=== PATIENT | female | born 1955 | race Caucasian/White ===

== ENCOUNTER 2019-08-12 14:03 | Emergency (ER) | payer OTHER ==
[~2019-08-12] VITALS: Ht 162.6 cm; Wt 68.0 kg
--- OUTSIDE RECORDS SUMMARY | ~2019-08-12 | XMS | Clinical Summary ---
Demographics + + + | Address | [address] [place] | | | [place] [address] | + + + | Home Phone | | + + + | Preferred Language | Unknown | + + + | Marital Status | | + + + | Shinto Affiliation | Unknown | + + + | Race | Unknown | + + + | Ethnic Group | Unknown | + + + Author + + + | Author | [facility] | | | and Jigneshana | + + + | Organization | [facility] | | | and Jigneshana | + + + | Address | Unknown | + + + | Phone | Unavailable | + + + Support + + +---------+ + | Name | Relationship | Address | Phone | + + +---------+ + | Hipolito Isaacs | ECON | Unknown | | + + +---------+ + | Daphne Galindo | ECON | Unknown | | + + +---------+ + Care Team Providers + +------+ + | Care Gas Treater Name | Role | Phone | + +------+ + | Pcp, Prov Inactive | PCP | | + +------+ + Allergies + + + +--------+ + | Active Allergy | Reactions | Severity | Noted | Comments | | | | | Date | | + + + +--------+ + | Bupropion Hcl | | | | | + + + +--------+ + | Penicillins | | | | | + + + +--------+ + Medications + + + +---------+------+------+-------+ | Medication | Sig | Dispensed | Refills | Star | End | Statu | | | | | | t | Date | s | | | | | | Date | | | + + + +---------+------+------+-------+ | citalopram | Take 40 mg by mouth | | 0 | 11/0 | | Activ | | (CELEXA) 40 mg | Daily. | | | 8/20 | | e | | tablet | | | | 11 | | | + + + +---------+------+------+-------+ | mometasone | 1 puff daily for 14 | | 0 | 11/0 | | Activ | | (ASMANEX 14 METERED | days. rinse mouth | | | 8/20 | | e | | DOSES) 220 mcg/puff | and spit after each | | | 11 | | | | inhaler | use | | | | | | + + + +---------+------+------+-------+ | omeprazole | 1 by mouth every | | 0 | 10/0 | | Activ | | (PRILOSEC) 20 mg | a.m. 30 minutes | | | 7/20 | | e | | TBEC | prior to breakfast. | | | 11 | | | + + + +---------+------+------+-------+ | doxycycline | 1 by mouth two times | | 0 | 11/0 | | Activ | | (VIBRAMYCIN) 100 mg | daily for 10 days | | | 8/20 | | e | | tablet | | | | 11 | | | + + + +---------+------+------+-------+ | albuterol | 2 puffs every 4 | | 0 | 11/0 | | Activ | | (PROVENTIL HFA) 90 | hours as needed | | | 8/20 | | e | | mcg/puff inhaler | | | | 11 | | | + + + +---------+------+------+-------+ | lovastatin | Take 40 mg by mouth | | 0 | 01/1 | | Activ | | (MEVACOR) 40 MG | nightly. | | | 7/20 | | e | | tablet | | | | 12 | | | + + + +---------+------+------+-------+ | ascorbic acid | | | 0 | 09/1 | | Activ | | (VITAMIN C) 500 mg | | | | /20 | | e | | tablet | | | | 12 | | | + + + +---------+------+------+-------+ | multivitamin | | | 0 | 09/1 | | Activ | | (THERAGRAN) per | | | | 4/20 | | e | | tablet | | | | 12 | | | + + + +---------+------+------+-------+ Active Problems + + + | Problem | Noted Date | + + + | EPISTAXIS | 11/12/2011 | + + + | MAMMOGRAM, ABNORMAL, LEFT, HX OF | 11/12/2011 | + + + + + | Overview: ICD-10 Record update | + + + + + | HYPERLIPIDEMIA | 11/12/2011 | + + + | VIRAL URI | 09/07/2011 | + + + | CHEST DISCOMFORT | 08/06/2011 | + + + | GERD | 08/06/2011 | + + + | DEPRESSION/ANXIETY | 08/02/2011 | + + + | NONDEPENDENT TOBACCO USE DISORDER | | + + + | ACUTE BRONCHITIS | | + + + | CHRONIC AIRWAY OBSTRUCTION NEC | | + + + | ANXIETY DISORDER | | + + + | DEPRESSION | | + + + | FH DIABETES | | + + + | FH STROKE | | + + + Social History + +-------+ +--------+------+ | Tobacco Use | Types | Packs/Day | Years | Date | | | | | Used | | + +-------+ +--------+------+ | Never Assessed | | | | | + +-------+ +--------+------+ + + + | Sex Assigned at | Date Recorded | | | | + + + | Not on file | | + + + + + + + | Job Start Date | Occupation | Industry | + + + + | Not on file | Not on file | Not on file | + + + + + + + + | Travel History | Travel Start | Travel End | + + + + + + | No recent travel history available. | + + Last Filed Vital Signs + + + + | Vital Sign | Reading | Time Taken | + + + + | Blood Pressure | 112/70 | 11/12/2011 0000 PST | + + + + | Pulse | - | - | + + + + | Temperature | - | - | + + + + | Respiratory Rate | - | - | + + + + | Oxygen Saturation | - | - | + + + + | Inhaled Oxygen | - | - | | Concentration | | | + + + + | Weight | 78 kg (172 lb) | 11/12/2011 0000 PST | + + + + | Height | 165.7 cm (5' 5.25") | 01/14/2010 0000 PDT | + + + + | Body Mass Index | 28.4 | 01/14/2010 0000 PDT | + + + + Plan of Treatment + + + + + | Health Maintenance | Due Date | Last Done | Comments | + + + + + | Vaccine: | | | | | Dtap/Tdap/Td (1 - | 4 | | | | Tdap) | | | | + + + + + | Cervical Cancer | | | | | Screening (Pap) | 5 | | | + + + + + | Vaccine: Zoster (1 | | | | | of 2) | 5 | | | + + + + + | Breast Cancer | | 08/19/2011, 08/19/2011 | | | Screening | 3 | | | + + + + + | Vaccine: Influenza | | | | | (#1) | 9 | | | + + + + + Results Not on filefrom Last 3 Months
--- OUTSIDE RECORDS SUMMARY | ~2019-08-12 | XMS | Clinical Summary ---
Demographics + + + | Address | [address] [place] | | | [place] [address] | + + + | Home Phone | | + + + | Preferred Language | Unknown | + + + | Marital Status | | + + + | Confucianist Affiliation | Unknown | + + + | Race | Unknown | + + + | Ethnic Group | Unknown | + + + Author + + + | Author | [facility] | | | and Jigneshana | + + + | Organization | [facility] | | | and Jigneshana | [...] Team Providers + +------+ + | Care Scientific Publications Editor Name | Role | Phone | + [...]
[~2019-08-12 14:03] MED LIST: ALBUTEROL2.5 MG/3 M INH; IPRATROPIU0.2 MG/1 M INH; NORCO 5-325 TA1 EACH PO; TUSSIN CF COUG118 M1 PO; ZITHROMAX250 MG PO
== END 2019-08-12 16:14 | disposition home or self-care (01) ==
LOC: ED 14:03
DX: S83.92XA Sprain of unspecified site of left knee, initial encounter (principal); F17.200 Nicotine dependence, unspecified, uncomplicated; Z88.0 Allergy status to penicillin; Z88.8 Allergy status to other drugs, medicaments and biological substances; W01.0XXA Fall on same level from slipping, tripping and stumbling without subsequent striking against object, initial encounter
CPT/HCPCS: 73560; 99283

== ENCOUNTER 2023-11-07 18:03 | Emergency (ER) | payer SELFPAY ==
[~2023-11-07] VITALS: Ht 162.6 cm; Wt 56.7 kg
--- NOTE | ~2023-11-07 | EKG ---
[facility] [address] [facility] [place], [place] [address] Draft EK completed, results pending confirmation PATIENT NAME: CHAPO SALAZAR Electrocardiogram DATE OF : 55 PHYSICIAN: PRELIMINARY REPORT #: [id number] REPORT IS CONFIDENTIAL AND NOT TO BE RELEASED WITHOUT AUTHORIZATION
[2023-11-07 19:04] LABS: BASOPHILS 0.6 % (0-2); EOSINOPHILS 0.4 % (0-6); HEMOGLOBIN 12.9 g/dL (12.0-18.0); LYMPHOCYTES 16.3 % (24-44); MCH 31.4 (27-36); MCHC 33.2 g/dl (30-36); MCV 94.4 fl (81-99); NEUTROPHILS 74.7 % (39-80); PLATELET COUNT 335 K/uL (140-440); RBC 4.13 M/ul (4.3-5.7); RDW 14.2 (10.5-15.0)
[2023-11-07 19:21] LABS: ALBUMIN 3.4 g/dL (3.4-5.0); ALBUMIN/GLOBULIN RATIO 0.97 (1.1-2.4); ANION GAP 15.4 (7-21); BILIRUBIN, TOTAL 0.6 ng/dL (0.2-1.0); BUN/CREATININE RATIO 13.63 (6.0-28.6); CALCIUM 9.5 mg/dL (8.5-10.1); CREATININE, SERUM 0.66 mg/dL (0.55-1.02); MAGNESIUM 2.1 mg/dL (1.8-2.4); POTASSIUM 4.4 mmol/L (3.5-5.1); PROTEIN, TOTAL 6.9 g/dL (6.4-8.2)
[2023-11-07 21:04] VITALS: BP 114/56
[2023-11-07] MEDS ORDERED: ALBUTEROL2.5 MG/3 M INH (21:05)
== END 2023-11-07 21:05 | disposition home or self-care (01) ==
LOC: ED 18:03
PROVIDERS: Emergency Medicine
DX: J44.1 Chronic obstructive pulmonary disease with (acute) exacerbation (principal); J06.9 Acute upper respiratory infection, unspecified; F17.200 Nicotine dependence, unspecified, uncomplicated; Z88.0 Allergy status to penicillin; Z88.8 Allergy status to other drugs, medicaments and biological substances; Z79.51 Long term (current) use of inhaled steroids
CPT/HCPCS: 36415; 71045; 80053; 83735; 84484; 85025; 93005; 93010; 94640; 96374; 99285-25; J2930